=== PATIENT | male | born 2000 | race Caucasian/White ===

== ENCOUNTER 2024-02-15 09:21 | Emergency (ER) | payer BC, SELFPAY ==
--- NOTE | ~2024-02-15 | CT_ITS ---
Noncontrast CT scan of the cervical spine Technique: Multiple contiguous axial [address] images of the cervical spine were obtained and rec onstructed in 2D sagittal and coronal planes on the acquisition scanner. Dose reduction technique was used on this scan by utilizing automated exposure control, adjustment of the mA and/or kV according to patient size. The dose-length product (DLP) was 206.24 mGy-cm. Clinical History: Pain Findings: No fractures or dislocations. Unremarkable visualized bony structures. The intervertebral disc spaces are preserved. No prevertebral soft tissue swelling. Impression: No fracture or subluxation of the cervical spine. Reviewed, dictated and finalized at location . Impression: No fracture or subluxation of the cervical spine.
--- NOTE | ~2024-02-15 | CT_ITS ---
Non-contrast Head CT History: Head injury Technique: Axial non-contrast imaging of the brain was performed. Dose reduction technique was used on this scan by utilizing automated exposure control and iterative reconstruction technique. The dose -length product (DLP) was 605.33 mGy-cm. Findings: There is no evidence of intracranial hemorrhage, mass lesion, or acute infarct. Brain par enchyma appears normal. The ventricles and subarachnoid spaces are normal in size. The calvarium ap pears normal. The visualized paranasal sinuses and mastoid air cells are clear. Impression: No significant abnormality seen. Reviewed, dictated and finalized at location . Impression: No significant abnormality seen.
--- NOTE | ~2024-02-15 | XR_ITS ---
Right elbow Technique: AP, oblique, and lateral views were obtained. Clinical History: Pain Findings: No acute fracture or dislocation is seen. Osseous alignment is anatomic. Joint spaces are p reserved. There is no displacement of the fat pads, and no evidence of joint effusion. There is soft tissue laceration at the extensor aspect of the proximal forearm, with questionable punctate foreign body. Impression: Soft tissue laceration of the extensor aspect of the proximal forearm. Questionable punctate foreign body present. No osseous or articular abnormality seen. Reviewed, dictated and finalized at location M. Impression: Soft tissue laceration of the extensor aspect of the proximal forearm. Question able punctate foreign body present. No osseous or articular abnormality seen.
--- NOTE | ~2024-02-15 | CT_ITS ---
Non-contrast CT scan of the Abdomen and Pelvis Clinical indication: Trauma Technique: 2.5 mm axial scans were obtained through the abdomen and pelvis without intravenous or or al contrast. Dose reduction technique was used on this scan by utilizing automated exposure control a nd iterative reconstruction technique. The dose-length product (DLP) was 384.94 mGy-cm. Findings: Images through the lung bases reveal no abnormalities. There is no evidence of renal or ureteral calculi. The kidneys and the ureters are nondilated. The liver, spleen, pancreas, gallbladder, and adrenals appear normal. There is no aortic aneurysm. There is no evidence of bowel obstruction. Images through the pelvis were performed. There is no evidence of ascites or lymphadenopathy. Urinary bladder unremarkable. No pelvic mass seen. No fracture evident. Impression: No significant abnormality seen. Reviewed, dictated and finalized at [facility]. Impression: No significant abnormality seen.
[2024-02-15 09:26] VITALS: BP 114/76; PULSE 84; RESP 16; TEMP 36.4; O2SAT 100
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
[2024-02-15] MEDS: TETANUS,DIPHTHERIA,AC PERTUSSIS ADULT (0.5 ML) BOOSTRIX IM (10:20)
[2024-02-15] MEDS: ceFAZolin SODIUM 1 GM VIAL IM (10:21)
[2024-02-15] MEDS: WATER, STERILE FOR INJECTION 10 ML VIAL XX (10:40)
[2024-02-15 12:11] VITALS: BP 118/75; PULSE 81; RESP 15; TEMP 36.9; O2SAT 100
== END 2024-02-15 12:12 | disposition home or self-care (01) ==
PROVIDERS: Emergency Provider Physician Assistant; PCP Internal Medicine
DX: S51.021A Laceration with foreign body of right elbow, initial encounter (principal); S00.83XA Contusion of other part of head, initial encounter; S30.811A Abrasion of abdominal wall, initial encounter; Z23 Encounter for immunization; V86.56XA Driver of dirt bike or motor/cross bike injured in nontraffic accident, initial encounter
CPT/HCPCS: 12002; 70450; 72125; 73080; 74176; 90471; 90715; 96372; 99284; J0690

== ENCOUNTER 2025-01-08 15:44 | Emergency (ER) | payer OTHER, SELFPAY ==
[2025-01-08 16:02] VITALS: BP 108/68; PULSE 83; RESP 16; TEMP 36.6; O2SAT 100
--- NOTE | 2025-01-08 16:49 | ED_ITS ---
HPI - Nausea/Vomiting/Diarrhea General Chief complaint: Nausea/Vomiting/Diarrhea <Elisa Wu PA-C - Last Filed: 01/10/25 10:22> Stated complaint: Vomiting, chills, dizziness <Elisa Wu PA-C - Last Filed: 01/10/25 10:22> Time Seen by Provider: 01/08/25 16:49 <Elisa Wu PA-C - Last Filed: 01/10/25 10:22> Focused HPI: This is a 24 year old male that presents to the ER for vomiting. Ongoing over the last couple of days. Reports lightheadedness. Denies fever, diarrhea, dysuria, hematuria. GENERAL: Well-appearing, well-nourished, and in no acute distress. HEAD: Normocephalic, atraumatic. CHEST: Clear to auscultation. ?No respiratory distress. HEART: Regular rate and rhythm.? NEURO: ?Alert and oriented x3. Patient screened in triage and initial orders placed.? ?Additional care and disposition to be based upon?diagnostic testing and treatment. <Elisa Wu PA-C - Last Filed: 01/10/25 10:22> History of Present Illness HPI Narrative: 24-year-old male with intermittent vomiting. Reports he has had episodes over last couple weeks where he gets the feeling of being clammy and he starts getting dizzy and he vomits. He will close his eyes and he all of spinning dizziness. No fevers or chills. Also has decreased hearing in the right ear. < Guille Castro MD - Last Filed: 01/08/25 19:48> Related Data Allergies/Adverse reactions: Allergies Allergy/AdvReac Type Severity Reaction Status Date / Time No Known Allergies Allergy Unverified 01/08/25 15:45 <Elisa Wu PA-C - Last Filed: 01/10/25 10:22> Review of Systems 2 Constitutional: Constitutional: Reports no additional constitutional complaints <Guille Castro MD - Last Filed: 01/08/25 19:48> ENT: Reports system reviewed and no additional complaints, except as documented <Guille Castro MD - Last Filed: 01/08/25 19:48> Cardiovascular: Cardiovascular: Reports no additional cardiovascular complaints <Guille Castro MD - Last Filed: 01/08/25 19:48> Gastrointestinal: Gastrointestinal: Reports no additional gastrointestinal complaints <Guille Castro MD - Last Filed: 01/08/25 19:48> PMFSH Past Medical History Medical History: Medical History (Updated 01/10/25 @ 10:22 by Elisa Wu PA-C) Healthy adult male <Elisa Wu PA-C - Last Filed: 01/10/25 10:22> Surgical History Surgical History: Surgical History (Updated 01/08/25 @ 19:44 by Guille Castro MD) No history of previous surgery <Elisa Wu PA-C - Last Filed: 01/10/25 10:22> Exam 2 Narrative: GENERAL: Well-appearing, well-nourished, and in no acute distress. HEAD: Normocephalic, atraumatic. EYES: PERRL and EOMI. ENT: Mucous membranes moist. Right ear cerumen impaction. Right TM with some erythema after removal. CHEST: Clear to auscultation. No respiratory distress. HEART: Regular rate and rhythm. Normal peripheral pulses. EXTREMITIES: Normal range of motion. No edema. NEURO: Alert and oriented x3. PSYCH: Normal mood and affect. <Guille Castro MD - Last Filed: 01/08/25 19:48> Course Course Emergency Course: Hearing improved after cerumen removal. Cbc and CMP unremarkable. Meclizine for nausea and dizziness. Follow-up with PCP. Discussed prox to soften lax. <Guille Castro MD - Last Filed: 01/08/25 19:48> Vital Signs Vital signs: Vital Signs Temperature 97.9 F 01/08/25 16:02 Pulse Rate 83 01/08/25 16:02 Respiratory Rate 16 01/08/25 16:02 Blood Pressure 108/68 01/08/25 16:02 Pulse Oximetry 100 01/08/25 16:02 Oxygen Delivery Room Air 01/08/25 16:02 Temperature 97.9 F 01/08/25 16:02 Pulse Rate 71 01/08/25 20:17 Respiratory Rate 15 01/08/25 20:17 Blood Pressure 102/64 01/08/25 20:17 Pulse Oximetry 100 01/08/25 20:17 Oxygen Delivery Room Air 01/08/25 16:02 <Elisa Wu PA-C - Last Filed: 01/10/25 10:22> Vital Signs Temperature 97.9 F 01/08/25 16:02 Pulse Rate 83 01/08/25 16:02 Respiratory Rate 16 01/08/25 16:02 Blood Pressure 108/68 01/08/25 16:02 Pulse Oximetry 100 01/08/25 16:02 Oxygen Delivery Room Air 01/08/25 16:02 Temperature 97.9 F 01/08/25 16:02 Pulse Rate 71 01/08/25 20:17 Respiratory Rate 15 01/08/25 20:17 Blood Pressure 102/64 01/08/25 20:17 Pulse Oximetry 100 01/08/25 20:17 Oxygen Delivery Room Air 01/08/25 16:02 <Guille Castro MD - Last Filed: 01/08/25 19:48> Procedures Ear Wax Removal Right Ear: Ear Wax Removal Date: 01/08/25 <Guille Castro MD - Last Filed: 01/08/25 19:48> Results: Re-examined: cerumen removed completely <Guille Castro MD - Last Filed: 01/08/25 19:48> TM Examination: TM(s) intact, normal appearance <Guille Castro MD - Last Filed: 01/08/25 19:48> Ear Canal Exam: atraumatic <Guille Castro MD - Last Filed: 01/08/25 19:48> Patient Tolerated Procedure: well <Guille Castro MD - Last Filed: 01/08/25 19:48> Complications: no problems <Guille Castro MD - Last Filed: 01/08/25 19:48> Technique: ear canal curetted <Guille Castro MD - Last Filed: 01/08/25 19:48> MDM - Nausea/Vomiting/Diarrhea Lab Data Result diagrams: 01/08/25 17:26 01/08/25 17:26 <TRACY Walker Last Filed: 01/10/25 10:22> Labs: Lab Results 01/08/25 01/08/25 Range/Units 17:26 19:26 WBC 6.7 (4.5-10.0) K/mm3 RBC 5.08 (4.6-6.20) M/mm3 Hgb 14.0 (14.0-18.0) g/dL Hct 44.0 (42.0-52.0) % MCV 86.6 (80-100) fl MCH 27.6 (26-34) pg MCHC 31.8 L (32-36) g/dl RDW 13.2 (11.5-14.5) % Plt Count 276 (150-375) k/mm3 MPV 9.2 (7.4-10.4) fl Immature Gran % (Auto) 0.4 (0-0.5) % Neut % (Auto) 55.8 (45.5-73.1) % Lymph % (Auto) 32.3 (18.3-44.2) % [place] % (Auto) 9.1 H (2.6-8.5) % Eos % (Auto) 1.5 (0-4.4) % Baso % (Auto) 0.9 (0.2-1.2) % Lymph # (Auto) 2.16 (0.9-3.2) K/mm3 [place] # (Auto) 0.6 (0.1-0.6) K/mm3 Eos # (Auto) 0.1 (0-0.3) K/mm3 Baso # (Auto) 0.1 (0.0-0.1) K/mm3 Abs Immat Gran (auto) 0.03 (0.00-0.031) K/mm3 Absolute Neuts (auto) 3.7 (1.3-6.7) K/mm3 Absolute Nucleated RBC 0.000 (0.0-0.012) K/mm3 Nucleated RBC % 0.0 (0.0-0.2) % Sodium 141 (137-145) mmol/L Potassium 3.9 (3.4-5.0) mmol/L Chloride 105 (98-107) mmol/L Carbon Dioxide 30 (22-30) mmol/L Anion Gap 6 (4-12) mmol/L BUN 9 (9-20) mg/dL Creatinine 0.79 (0.7-1.3) mg/dL Estim Creat Clear Calc Not Reportable Estimated GFR > 60 (59 - ) Glucose 90 (65-110) mg/dL Calcium 9.4 (8.4-10.2) mg/dL Total Bilirubin 0.5 (0.2-1.3) mg/dL AST 28 (17-59) U/L ALT 21 (6-50) U/L Alkaline Phosphatase 55 (38-126) U/L Total Protein 8.0 (6.3-8.2) g/dL Albumin 4.6 (3.5-5.1) g/dL Lipase 45 (23-300) U/L Urine Color Yellow (Yellow) Urine Appearance Turbid H (Clear) Urine pH 8.5 (5.0-9.0) Ur Specific [place] 1.019 (1.001-1.035) Urine Protein 1+ H (Negative) mg/dL Urine Glucose (UA) Negative (Negative) mg/dL Urine Ketones Negative (Negative) mg/dL Ur Blood (Man) Negative (Negative) Urine Nitrate Negative (Negative) Urine Bilirubin Negative (Negative) Urine Urobilinogen 0.2 (<2.0) mg/dL Leukocyte Esterase Rfl Negative (Negative) NGHIA/UL Urine RBC 0-2 (0-2) /hpf Urine WBC 0-5 (0-3) /hpf Ur Squamous Epith Cells None seen (Few) /hpf Urine Bacteria None seen /hpf Urine Casts 0-2 <Eilsa Wu PA-C - Last Filed: 01/10/25 10:22> Lab Results 01/08/25 01/08/25 Range/Units 17:26 19:26 WBC 6.7 (4.5-10.0) K/mm3 RBC 5.08 (4.6-6.20) M/mm3 Hgb 14.0 (14.0-18.0) g/dL Hct 44.0 (42.0-52.0) % MCV 86.6 (80-100) fl MCH 27.6 (26-34) pg MCHC 31.8 L (32-36) g/dl RDW 13.2 (11.5-14.5) % Plt Count 276 (150-375) k/mm3 MPV 9.2 (7.4-10.4) fl Immature Gran % (Auto) 0.4 (0-0.5) % Neut % (Auto) 55.8 (45.5-73.1) % Lymph % (Auto) 32.3 (18.3-44.2) % [place] % (Auto) 9.1 H (2.6-8.5) % Eos % (Auto) 1.5 (0-4.4) % Baso % (Auto) 0.9 (0.2-1.2) % Lymph # (Auto) 2.16 (0.9-3.2) K/mm3 [place] # (Auto) 0.6 (0.1-0.6) K/mm3 Eos # (Auto) 0.1 (0-0.3) K/mm3 Baso # (Auto) 0.1 (0.0-0.1) K/mm3 Abs Immat Gran (auto) 0.03 (0.00-0.031) K/mm3 Absolute Neuts (auto) 3.7 (1.3-6.7) K/mm3 Absolute Nucleated RBC 0.000 (0.0-0.012) K/mm3 Nucleated RBC % 0.0 (0.0-0.2) % Sodium 141 (137-145) mmol/L Potassium 3.9 (3.4-5.0) mmol/L Chloride 105 (98-107) mmol/L Carbon Dioxide 30 (22-30) mmol/L Anion Gap 6 (4-12) mmol/L BUN 9 (9-20) mg/dL Creatinine 0.79 (0.7-1.3) mg/dL Estim Creat Clear Calc Not Reportable Estimated GFR > 60 (59 - ) Glucose 90 (65-110) mg/dL Calcium 9.4 (8.4-10.2) mg/dL Total Bilirubin 0.5 (0.2-1.3) mg/dL AST 28 (17-59) U/L ALT 21 (6-50) U/L Alkaline Phosphatase 55 (38-126) U/L Total Protein 8.0 (6.3-8.2) g/dL Albumin 4.6 (3.5-5.1) g/dL Lipase 45 (23-300) U/L Urine Color Yellow (Yellow) Urine Appearance Turbid H (Clear) Urine pH 8.5 (5.0-9.0) Ur Specific [place] 1.019 (1.001-1.035) Urine Protein 1+ H (Negative) mg/dL Urine Glucose (UA) Negative (Negative) mg/dL Urine Ketones Negative (Negative) mg/dL Ur Blood (Man) Negative (Negative) Urine Nitrate Negative (Negative) Urine Bilirubin Negative (Negative) Urine Urobilinogen 0.2 (<2.0) mg/dL Leukocyte Esterase Rfl Negative (Negative) NGHIA/UL Urine RBC 0-2 (0-2) /hpf Urine WBC 0-5 (0-3) /hpf Ur Squamous Epith Cells None seen (Few) /hpf Urine Bacteria None seen /hpf Urine Casts 0-2 <Guille Castro MD - Last Filed: 01/08/25 19:48> Critical Care Time Critical Care Time Critical Care Time: No <Elisa Wu PA-C - Last Filed: 01/10/25 10:22> Discharge Plan Discharge Clinical Impression: Vertigo Cerumen impaction Qualifiers: Laterality: right Qualified Code(s): H61.21 - Impacted cerumen, right ear <Elisa Wu PA-C - Last Filed: 01/10/25 10:22> Patient Disposition: Home <Elisa Wu PA-C - Last Filed: 01/10/25 10:22> Condition: Stable <Elisa Wu PA-C - Last Filed: 01/10/25 10:22> Instructions: Carbamide Peroxide (Into the ear), Vertigo (ED) <Elisa Wu PA-C - Last Filed: 01/10/25 10:22> Additional Instructions: Return ER if you have worsening spinning dizziness, you cannot keep down food water, you lose consciousness, have additional concerns. <Elisa Wu PA-C - Last Filed: 01/10/25 10:22> Patient Language: Angolan <Elisa Wu PA-C - Last Filed: 01/10/25 10:22> Prescriptions: New Clearcanal Earwax Softener 6.5 % drops 5 drp RIGHT EAR Q12H 4 Days Qty: 15 0RF No Action cephalexin 500 mg capsule 500 mg PO Q6H 7 Days Qty: 28 0RF <Elisa Wu PA-C - Last Filed: 01/10/25 10:22> Follow-up/Referrals: Mahay,Cal Serrano MD [Primary Care Provider] - 1 Week <Elisa Wu PA-C - Last Filed: 01/10/25 10:22> Stand Alone Forms: Work/School Release IP <Elisa Wu PA-C - Last Filed: 01/10/25 10:22>
[2025-01-08 17:35] LABS: Basophils Absolute Auto 0.1 K/mm3 (0.0-0.1); Basophils Percent Auto 0.9 % (0.2-1.2); Eosinophils Absolute Auto 0.1 K/mm3 (0-0.3); Eosinophils Percent Auto 1.5 % (0-4.4); Immature Granulocyte Absolute 0.03 K/mm3 (0.00-0.031); Immature Granulocyte Percent A 0.4 % (0-0.5); Lymphocytes Absolute Auto 2.16 K/mm3 (0.9-3.2); Lymphocytes Percent Auto 32.3 % (18.3-44.2); Mean Corpuscular HGB Conc 31.8 g/dl (32-36); Mean Corpuscular Hemoglobin 27.6 pg (26-34); Mean Corpuscular Volume 86.6 fl (80-100); Mean Platelet Volume 9.2 fl (7.4-10.4); Monocytes Absolute Auto 0.6 K/mm3 (0.1-0.6); Monocytes Percent Auto 9.1 % (2.6-8.5); Neutrophils Absolute Auto 3.7 K/mm3 (1.3-6.7); Neutrophils Percent Auto 55.8 % (45.5-73.1); Platelet Count Result 276 k/mm3 (150-375); Red Blood Count 5.08 M/mm3 (4.6-6.20); Red Cell Distribution Width 13.2 % (11.5-14.5); White Blood Count 6.7 K/mm3 (4.5-10.0)
[2025-01-08 17:45] LABS: Alanine Aminotransferase 21 U/L (6-50); Albumin Level 4.6 g/dL (3.5-5.1); Alkaline Phosphatase 55 U/L (38-126); Anion Gap 6 mmol/L (4-12); Aspartate Amino Transferase 28 U/L (17-59); Bilirubin,Total 0.5 mg/dL (0.2-1.3); Blood Urea Nitrogen 9 mg/dL (9-20); Calcium 9.4 mg/dL (8.4-10.2); Carbon Dioxide 30 mmol/L (22-30); Chloride 105 mmol/L (98-107); Estimated Glomerular Filt Rate > 60; Glucose 90 mg/dL (65-110); Lipase 45 U/L (23-300); Potassium 3.9 mmol/L (3.4-5.0); Sodium 141 mmol/L (137-145)
[2025-01-08] MEDS: FAMOTIDINE 20 MG/2 ML VIAL IV PUSH (18:42)
[2025-01-08] MEDS: ONDANSETRON INJ 4 MG/2 ML VIAL IV PUSH (18:42)
[2025-01-08 18:44] VITALS: BP 110/74; PULSE 76; RESP 16; O2SAT 100
[2025-01-08] MEDS: MECLIZINE HCL 25 MG TABLET PO (19:22)
[2025-01-08 19:55] LABS: Add Urine Microscopic? YES; Appearance Urine Turbid (Clear); Bacteria Urine None Seen /hpf; Bilirubin Urine Negative (Negative); Blood Urine Negative (Negative); Color Urine Yellow (Yellow); Glucose Urine UA Negative (Negative); Ketones Urine Negative (Negative); Leukocyte Esterase Ur Negative LEU/UL (Negative); Nitrate Urine Negative (Negative); Non Pathogenic Casts 0-2; Protein Urine 1+ mg/dL (Negative); RBC Urine 0-2 /hpf (0-2); Specific Grav Ur 1.019 (1.001-1.035); Squamous Epithelial Cell Urine None Seen /hpf (Few); Urobilinogen Urine 0.2 mg/dL (<2.0); WBC Urine 0-5 /hpf (0-3); pH Urine 8.5 (5.0-9.0)
[2025-01-08 20:17] VITALS: BP 102/64; PULSE 71; RESP 15; O2SAT 100
== END 2025-01-08 20:19 | disposition home or self-care (01) ==
PROVIDERS: Physician Assistant; Emergency Provider Emergency Medicine; PCP Internal Medicine
DX: R42 Dizziness and giddiness (principal); H61.21 Impacted cerumen, right ear
CPT/HCPCS: 36415; 69210; 80053; 81001; 83690; 85025; 96374; 96375; 99283; A9270; J2405